=== PATIENT | female | born 1980 | race Caucasian/White ===

== ENCOUNTER 2025-03-19 07:56 | Outpatient (AMB) | payer OTHER, SELFPAY ==
--- NOTE | 2025-03-19 08:01 | A.OFFPC_ITS ---
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 Accompanied by: Self / Same As Patient Allergies No Known Allergies Allergy (Verified 03/19/25 08:13) Medication List - Last Reconciled 03/19/25 by Kimberly Fernandes MD No Known Home Meds Tobacco use date assessed: 03/19/25 Dental Screening Dental Screen Date: 03/19/25 Did you have a dental visit in the last 12 months?: Yes Did you have a dental problem in the last 6 months where you did not have access to dental care?: No Was dental information given to patient?: Patient has dentist HPI HPI Comments History of Present Illness Details The patient is a 44-year-old female presenting for a routine examination and management of chronic conditions, including anemia, and constipation. She has undergone a laparoscopy for endometriosis, which was done to address her reproductive health history. There is a notable family history of pernicious anemia and essential hypertension. The patient has not had recent healthcare engagements, missing healthcare appointments over the past 3-4 years, which includes not having a mammogram. She reports experiencing flu-like symptoms earlier in the year requiring emergency intervention. The patient describes lifelong constipation, having had only one bowel movement per week, attributing a part of it to her anemia as advised by her previous doctor. She mentioned an increase in weight from 145 to 176 pounds recently without any documented cause. Cessation of her smoking habits is a goal, and steps are being taken in this regard. She consumes nutrient supplements like magnesium, Vitamin D, and [place]augh-3. There are no reported allergies to medications or other substances. [facility] Medical History (Updated 03/19/25 @ 08:20 by Kimberly Fernandes MD) No pertinent past medical history Surgical History (Updated 03/19/25 @ 08:16 by Kimberly Fernandes MD) H/O laparoscopy Tubal ligation status Family History Mother Hypertension Father Emphysema lung Anemia Pernicious anemia Social History Housing: House Alcohol intake: never Patient Tobacco Use Status: Current everyday Tobacco user Tobacco use type: Cigarette Cigarette Packs Per Day: 1 e-Cigarette/Vaping Use: Never Used Second Hand Smoke Exposure: No service: No Current occupational status: employed Current occupational exposures/hazards: No Cognitive needs: No Hearing needs: No Vision needs: Yes Questionnaire PHQ-9 Over the last 2 weeks, how often have you been bothered by any of the following problems? 1. Little interest or pleasure in doing things: more than half the days 2. Feeling down, depressed, or hopeless: not at all 3. Trouble falling or staying asleep, or sleeping too much: more than half the days 4. Feeling tired or having little energy: several days 5. Poor appetite or overeating: not at all 6. Feeling bad about yourself - or that you are a failure or have let yourself or your family down: not at all 7. Trouble concentrating on things, such as reading the newspaper or watching television: not at all 8. Moving or speaking so slowly that other people could have noticed. Or the opposite - being so fidgety or restless that you have been moving around a lot more than usual: several days 9. Thoughts that you would be better off or of hurting yourself in some way: not at all Total score: 6 Depression Screening Interpretation: Positive Depression Screening Follow-up: Existing condition and Follow-up Visit Requested Depression Screening Done: Yes 86363 - PHQ-9 Billing: Yes Source: Developed by Drs. Rafy Yee, Anabela Prieto, Franklyn Barrett and colleagues, with an educational jhonny from [employer]. Thrive Questionnaire Date Thrive assessed: 03/12/25 I am a: Patient What is your living situation today?: I have a steady place to live Within the past 12 months, did the food you bought not last and you didn't have the money to get more?: Often true Within the past 12 months, did you worry whether your food would run out before you got money to buy more?: Never true Do you have trouble paying for medicines?: No Do you have trouble getting transportation to medical appointments?: No Do you have trouble paying your heating and electricity bill?: No Do you have trouble taking care of your child, family member or friend?: No Do you have trouble with day-to-day activities such as bathing, preparing meals, shopping, managing finances, etc.?: No Are you currently unemployed and looking for a job?: No Are you interested in more education?: No Please select the resources that you would like help with: None Currently or been in a relationship where the following occur: No concerns reported THRIVE Score: 1 AUDIT C Alcohol Use Questionnaire (AUDIT-C) 1. How often do you have a drink containing alcohol?: Never Total Score: 0 Score Reviewed/Action Taken: No IVY-7 AMB Questionnaire IVY-7 Date IVY - 7 assessed: 03/19/25 Feeling nervous, anxious, or on edge: 0 = Not at all Not being able to stop or control worryin = Not at all Worrying too much about different things: 0 = Not at all Trouble relaxin = Not at all Being so restless that it is hard to sit still: 0 = Not at all Becoming easily annoyed or irritable: 0 = Not at all Feeling afraid as if something awful might happen: 0 = Not at all Total IVY-7 score (0-4 normal; 5-9 mild; 10-14 moderate; 15-21 severe): 0 Source: Developed by Drs. Rafy Yee, Anabela Prieto, Franklyn Barrett and colleagues, with an educational jhnony from [employer]. IVY-7 Assessment Billing IVY-7 Assessment Tool: IVY-7 Assessment 45683 Review of Systems Const All systems reviewed & are unremarkable except as noted in HPI and below Card Denies chest pain at rest, Denies chest pain with activity, Denies edema, Denies irregular heart rhythm, Denies claudication, Denies dyspnea, Denies dyspnea on exertion, Denies orthopnea, Denies paroxysmal nocturnal dyspnea and Denies slow heart rate Resp Denies cough, Denies dyspnea and Denies dyspnea on exertion GI Denies abdominal pain, Denies change in bowel habits, Reports constipation, Denies excessive flatus, Denies nausea and Denies vomiting Denies urinary incontinence, Denies urinary hesitancy and Denies urinary urgency Musc Denies abnormal gait, Denies atrophy, Denies deformity and Denies limited range of motion Skin/Breast Denies bleeding lesions, Denies changing lesions and Denies rash Neuro Denies abnormal gait and Denies lack of coordination Psych Reports anxiety and Reports depression Physical exam (Primary Care) Vital Signs: Last Vital Signs BP 122/80 03/19/25 08:02 BMI result Body Mass Index 28.4 Tobacco/Smoking Status: Tobacco use Status Tobacco use date assessed 03/19/25 03/19/25 08:09 Patient Tobacco Use Status Current everyday Tobacco 03/19/25 08:09 Tobacco use type Cigarette 03/19/25 08:09 e-Cigarette/Vaping Use Never Used 03/19/25 08:09 Are you ready to quit: Yes Tobacco cessation counseling provided: Yes Items discussed: Nicotine replacement and QuitWorks Relapse Prevention: discussed the importance of a supportive environment, discussed extending NRT, discussed negative mood or depression after quitting, weight gain after smoking is common and discussed dietary, exercise and/or lifestyle changes Number of minutes spent counselin CPT code: 59264 - 4-10 Minutes PHQ-9: PHQ-9 Score PHQ-9: Total score 6 03/19/25 08:19 Depression Screening Interpretation: Positive Depression Screening Follow-up: Existing condition and Follow-up Visit Requested Thrive Assessment: Date of Thrive Assessment Date Thrive assessed 03/12/25 03/19/25 08:09 Currently or been in a relationship where the following occur: No concerns reported Resp Effort & Inspection: normal respiratory effort Auscultation: clear to auscultation bilaterally Cardio Jugular venous distension: no JVD Rate: regular rate Rhythm: regular rhythm Heart sounds: S1 normal heart sound present and S2 normal heart sound present Extrem General: Yes full ROM Immunizations Boostrix Tdap 2.5 Lf unit-8 mcg-5 Lf/0.5 mL intramuscular syringe Performing Provider: Kimberly Fernandes MD [facility] Administered by: SHAZIA Gallardo on 03/19/25 08:30 Dose Route Admin Location Dispensed Lot Number Expiration Date [facility] Marine Equipment Test Engineer 0.5 mL IM Left Deltoid 0.5 mL [id number] 07/22/27 [id number] [employer] VIS Given Date VIS Provided VIS Publication Date 03/19/25 Single Vaccine 24 Eligibility Eligibility Date Funding Source Not [facility] Eligible 03/19/25 Private Coding Level of Care Code New Pt Level 4 (72804) Complex EM visit Add On G2211 Diagnoses Mild recurrent major depression F33.0 Anemia D64.9 Chronic idiopathic constipation K59.04 Overweight (BMI 25.0-29.9) E66.3 Additional Codes PHQ-9 - 59520 - PHQ-9 Billing: Yes ([id number]) IVY-7 Assessment Billing - IVY-7 Assessment Tool: IVY-7 Assessment 97414 ([id number]) Vital Signs *Quality* - CPT code: 61214 - 4-10 Minutes ([id number]) Time Spent (min) 25 Assessment & Plan Assessment & Plan (1) Mild recurrent major depression: Code(s): F33.0 - Major depressive disorder, recurrent, mild Category: Medical (2) Anemia: Code(s): D64.9 - Anemia, unspecified Category: Medical (3) Chronic idiopathic constipation: Code(s): K59.04 - Chronic idiopathic constipation Category: Medical (4) Overweight (BMI 25.0-29.9): Code(s): E66.3 - Overweight Category: Medical Plan Management of the patient's multiple chronic conditions includes ongoing monitoring and treatment adjustments. Hemoglobin levels are to be regularly checked for any anemia progression with adjustments in supplementation as appropriate. Constipation will be managed with diet and potential medication interventions. Smoking cessation will be supported with nicotine patches and resources. Additional screening interventions include scheduling for mammography and colorectal cancer screening, acknowledging the lack of prior screenings and addressing age-related risks. Vaccination for tetanus will take place during today's visit. Patient was informed and verbally consented to the use of an ambient scribe for clinic note documentation during this visit. During the visit, we discussed the management plans for the patient's health conditions. We agreed to proceed with blood tests for anemia and based on lab results, make adjustments to her supplementation regimen. For constipation, dietary intervention is suggested before pharmacological interventions, with the potential for requiring laxatives if the problem persists. The patient agreed to participate in smoking cessation therapy with nicotine patches and use recommended online resources. She consented to the tetanus vaccination, understanding its necessity despite work constraints. We emphasized the importance of routine mammograms and cancer screening given her age and family history. She is advised to follow up based on the test results and as her condition evolves. Orders: Orders Comprehensive [place]. Panel Fast Today K59.04 - Chronic idiopathic constipation Thyroid Stimulating Hormone Today K59.04 - Chronic idiopathic constipation MM tomosynthesis screening BI Today Z12.31 - Encounter for screening mammogram for malignant neoplasm of breast Complete Blood Count Auto Diff Today D64.9 - Anemia, unspecified IRON PROFILE Today D64.9 - Anemia, unspecified Vitamin B12 and Folate Today D64.9 - Anemia, unspecified, E53.8 - Deficiency of other specified B group vitamins Lipid Panel Today E66.3 - Overweight Vitamin D 25-OH Total Today E55.9 - Vitamin D deficiency, unspecified Referrals Counseling Referral F33.0 - Major depressive disorder, recurrent, mild INSURANCE CUSTOMER SERVICE SPECIALIST Referral Z12.4 - Encounter for screening for malignant neoplasm of cervix Medications: New sennosides (senna) 8.6 mg PO BEDTIME 30 days 30 tabs 0RF K59.04 - Chronic idiopathic constipation Patient Instructions: - Quit smoking using nicotine patches and recommended resources. - Increase dietary fiber to manage constipation. - Arrange mammography and colorectal cancer screening appointments. - Continue with magnesium and vitamin supplementation as discussed. - Follow-up after completion of laboratory tests for further anemia management. - Ensure tetanus vaccination during today's visit. - Stay hydrated and engage in regular exercise.
[2025-03-19 08:02] VITALS: BP 122/80; BMI 28.4
--- OUTSIDE RECORDS SUMMARY | 2025-03-19 08:02 | XMS_ITS | Clinical Summary ---
Author Organization [employer] Address [address] [place] [address] [address] [place] [address] Care Team Providers Care Manager Trust Name Role Phone Unavailable Primary Care Provider Unavailabl e Allergies No known active allergies Medications No known medications Encounters Date Type Department Care Team Description 02/10/2025 3:00 PM EDT Office Visit [facility] [address] [place] [address] Urbna Jasmine 01/20/2025 3:30 PM EST Office Visit [facility] [address] [place] [address] Urban Jasmine from Last 3 Months Social History Tobacco Use Types Packs/Day Years Used Date Smoking Tobacco: Every Day Cigarettes Passive Smoke Exposure: Never Smokeless Tobacco: Never Tobacco Cessation:Ready to Q uit: Not Asked; Counseling Given: Not Answered Comments Unknown Sex and Gender Information Value Date Recorded Sex Assigned at Female 10/03/2024 3:25 PM EST Legal Sex Female 10:15 AM EDT Gender Identity Female 10/03/2024 3:25 PM EST Sexual Orientation Straight 10/03/2024 3: 25 PM EST Last Filed Vital Signs Vital Sign Reading Time Taken Comments Blood Pressure 124/81 02/10/2025 3:08 PM EDT Pulse 65 10/28/2024 2:14 PM EST Temperature - - Respiratory Rate - - Oxygen Saturation - - Inhaled Oxygen Concentration - - Weight - - Height - - Body Mass Index - - Plan of Treatment Upcoming Encounters Date Type Department Care Team (Late st Contact Info) Description 04/10/2025 3:00 PM EDT Office Visit [facility]ULT [facility] [address] [place] [address] Urban Jasmine [address] [place] [address] Health Maintenance Due Date Last Done Comments Depression Screening 1980 HIV Screening 1980 Lipid Panel 1980 SDOH Screening 1980 Alcohol/Substance Use Screening 1992 Family Planning (PISQ) 1995 Hepatitis C Screening 1998 DTaP/Tdap/Td Vaccines (1 - Tdap) 1999 Hepatitis B Vaccines (1 of 3 - 19+ 3-dose series) 1999 Pneumococcal Vaccine: Pediat rics (0 to 5 Years) and At-Risk Patients (6 to 49) Years) (1 of 2 - PCV) 1999 Pap Smear 2001 Cervical Cancer Screening 2010 HPV/Cotest 2010 Mammogram 2020 COVID-19 Vaccine (1 - 2023-2 5 season) 2024 Influenza Vaccine (#1) 2024 Dental Prophylaxis 04/29/2025 10/28/2024 Dental Oral Exam 07/21/2025 01/20/2025 Dental X-Ray: Bitewings 10/29/2025 10/28/2024 Tobacco Screening 02/10/2026 02/10/2025 Dental X-Ray: Full Mouth 10/29/2027 10/28/2024 Zoster Vaccines (1 of 2) 2030 RSV Patients and Pa tients Aged 60 years or older (1 - 1-dose 75+ series) 2055 HIB Vaccines Aged Out No longer eligi ble based on patient's age to complete this topic HPV Vaccines Aged Out No longer eligi ble based on patient's age to complete this topic Hepatitis A Vaccines Aged Out No long er eligible based on patient's age to complete this topic IPV Vaccines Aged Out No longer eligi ble based on patient's age to complete this topic Meningococcal Vaccine Aged Out No silvestre familia eligible based on patient's age to complete this topic RSV under 20 months Aged Out No longe r eligible based on patient's age to complete this topic Rotavirus Vaccines Aged Out No longer eligible based on patient's age to complete this topic Procedures Procedure Name Priority Date/Time Associated Diagnosis Comments CASE PRESENTATION, DETAILED AND EXTENSIVE TREATMENT PLANNING Routine 02/10/2025 3:00 PM EDT 21 O RESIN-BASED COMPOSITE - 1 SURF, POSTERIOR Routine 02/10/2025 3:00 PM EDT CARIES RISK ASSESSMENT AND DOCUMENTATION, HIGH RISK Routine 01/20/2025 3:30 PM EST TOBACCO COUNSELING FOR THE CONTROL AND PREVENTION OF ORAL DISEASE Routine 01/20/2025 3:30 PM EST ORAL HYGIENE INSTRUCTIONS Routine 2024 3:30 PM EST CASE PRESENTATION, DETAILED AND EXTENSIVE TREATMENT PLANNING Routine 01/20/2025 3:30 PM EST COMPREHENSIVE ORAL EVALUATION - NEW OR ESTABLISHED PATIENT Routine 01/20/2025 3:30 PM EST PROPHYLAXIS - ADULT Routine 10/28/2024 2 :00 PM EST INTRAORAL - COMPLETE SERIES OF RADIOGRAPHIC IMAGES Routine 10/28/2024 2:00 PM EST from Last 3 Months or Most Recently Relevant to Health Maintenance Insurance [facility] MEDICAID STAND ADULT
== END 2025-03-19 08:31 | disposition home or self-care (01) ==
LOC: HO.HMCH 07:57
PROVIDERS: PCP Internal Medicine; Visit Provider Internal Medicine
DX: F33.0 Major depressive disorder, recurrent, mild (principal); D64.9 Anemia, unspecified; K59.04 Chronic idiopathic constipation; E66.3 Overweight; Z23 Encounter for immunization

== ENCOUNTER → 2025-03-19 07:56 | Outpatient (BNVA) | payer OTHER, SELFPAY | PROVIDERS: PCP Internal Medicine; Visit Provider Internal Medicine | DX: F33.0 Major depressive disorder, recurrent, mild (principal); Z23 Encounter for immunization; D64.9 Anemia, unspecified; K59.04 Chronic idiopathic constipation; E66.3 Overweight; Z68.28 Body mass index [BMI] 28.0-28.9, adult | CPT/HCPCS: 90471; 90715; 96127; 99202 ==

== ENCOUNTER 2025-05-13 11:40 | Outpatient (REF) | payer OTHER, SELFPAY ==
--- NOTE | ~2025-05-13 | MM_ITS ---
EXAMINATION: MM SCREENING DIGITAL BREAST TOMOSYNTHESIS, BILATERAL CLINICAL INFORMATION: Screening. Asymptomatic. COMPARISON: Mammography: Baseline. TECHNIQUE: Digital breast mammography with tomosynthesis is performed in both the craniocaudal and mediolateral oblique views along with computer-aided detection (CAD). FINDINGS: There are scattered areas of fibroglandular density (ACR BI-RADS breast composition Category b). There are no significant masses, abnormal calcifications, or other abnormalities. MM/MM tomosynthesis screening BI IMPRESSION: No mammographic evidence of malignancy. ASSESSMENT: BI-RADS BI-RADS 1 - Negative RECOMMENDATION: Routine annual mammography screening. 1 year F/U This examination should not preclude the clinical evaluation of a suspicious palpable abnormality. This patient's information was entered into a reminder system with a target due date for their next mammogram. Electronically signed by: Camille Chaney DO 05/18/2025 06:13 PM EDT
--- OUTSIDE RECORDS SUMMARY | 2025-05-13 13:40 | XMS_ITS | Clinical Summary ---
Author Organization [employer] Address [address] [facility] [address] [place] [address] Care Team Providers Care Aluminum Hydroxide Process Operator Name Role Phone Unavailable Primary Care Provider Unavailabl e Allergies No known active allergies Medications nicotine (Nicoderm, Step 1) 21 MG/24HR patch 03/19/2025 Ac tive Senna-Time 8.6 MG tablet 03/19/2025 Active Encounters Date Type Department Care Team Description 04/17/2025 1:00 PM EDT Office Visit [facility]ULT [facility] [address] [place] [address] Macy Obregon DDS 04/10/2025 3:00 PM EDT Office Visit [facility] [address] [place] [address] Elsa Jasminericio 02/10/2025 3:00 PM EDT Office Visit [facility] [address] [place] [address] Urban Jasmine from Last 3 Months Social [...] Sign Reading Time Taken Comments Blood Pressure 108/60 04/17/2025 1:10 PM EDT Pulse 65 10/28/2024 2:14 PM EST Temperature - - Respiratory Rate - - Oxygen Saturation - - Inhaled Oxygen Concentration - - Weight - - Height - - Body Mass Index - - Plan of Treatment Health Maintenance Due Date Last Done Comments Depression Screening 1980 HIV Screening 1980 Lipid Panel 1980 SDOH Screening 1980 Disability Screening 1980 Alcohol/Substance Use Screening 1992 Family Planning (PISQ) 1995 Hepatitis C Screening 1998 DTaP/Tdap/Td Vaccines (1 - Tdap) 1999 Hepatitis B Vaccines (1 of 3 - 19+ 3-dose series) 1999 Pneumococcal Vaccine: Pediatrics (0 to 5 Years) and At-Risk Patients (6 to 49) Years (1 of 2 - PCV) 1999 Pap Smear 2001 Cervical Cancer Screening 2010 HPV/Cotest 2010 Mammogram 2020 COVID-19 Vaccine (1 - 2023-2 5 season) 2024 Dental Prophylaxis 04/29/2025 10/28/2024 Dental Oral Exam 07/21/2025 01/20/2025 Influenza Vaccine (Season Ended) 2025 Tobacco Screening 04/17/2026 04/17/2025 Dental X-Ray: Bitewings 04/18/2026 04/17/20, 10/28/2024 Dental X-Ray: Full Mouth 10/29/2027 10/28/2024 Zoster Vaccines (1 of 2) 2030 RSV Patients and Patients Aged 60 years or older (1 - [...] patient's age to complete this topic Meningococcal B Vaccine Aged Out No l onger eligible based on patient's age to complete [...] PRESENTATION, DETAILED AND EXTENSIVE TREATMENT PLANNING Routine 04/17/2025 1:00 PM EDT INTRAORAL - PERIAPICAL FIRST RADIOGRAPHIC IMAGE Routine 04/17/2025 1:00 PM EDT LIMITED ORAL EVALUATION - PROBLEM FOCUSED Routine 04/17/2025 1:00 PM EDT BITEWING - SINGLE RADIOGRAPHIC IMAGE Routine 04/17/2025 1:00 PM EDT CASE PRESENTATION, DETAILED AND EXTENSIVE TREATMENT PLANNING Routine 04/10/2025 3:00 PM EDT 20 O RESIN-BASED COMPOSITE - 1 SURF, POSTERIOR Routine 04/10/2025 3:00 PM EDT 29 O RESIN-BASED COMPOSITE - 1 SURF, POSTERIOR Routine 04/10/2025 3:00 PM EDT 28 O RESIN-BASED COMPOSITE - 1 SURF, POSTERIOR Routine 04/10/2025 3:00 PM EDT CASE PRESENTATION, DETAILED AND EXTENSIVE TREATMENT PLANNING Routine 02/10/2025 3:00 PM EDT 21 O RESIN-BASED COMPOSITE - 1 SURF, POSTERIOR Routine 02/10/2025 3:00 PM EDT COMPREHENSIVE ORAL EVALUATION - NEW OR ESTABLISHED PATIENT Routine 01/20/2025 3:30 PM EST PROPHYLAXIS - ADULT Routine 10/28/2024 2 :00 PM EST INTRAORAL - COMPLETE SERIES OF RADIOGRAPHIC IMAGES Routine 10/28/2024 2:00 PM EST from Last 3 Months or Most Recently Relevant to Health Maintenance Insurance [facility] MEDICAID STAND ADULT
== END 2025-05-13 11:41 | disposition home or self-care (01) ==
LOC: HO.MAMMO 11:40
PROVIDERS: PCP Internal Medicine; Visit Provider Internal Medicine
DX: Z12.31 Encounter for screening mammogram for malignant neoplasm of breast (principal)
CPT/HCPCS: 77063; 77067

== ENCOUNTER → 2025-05-13 11:45 | Outpatient (BNV) | payer OTHER, SELFPAY | PROVIDERS: PCP Internal Medicine; Visit Provider Internal Medicine | DX: Z12.31 Encounter for screening mammogram for malignant neoplasm of breast (principal) | CPT/HCPCS: 77063; 77067 ==

== ENCOUNTER 2025-05-20 10:19 | Outpatient (REF) | payer OTHER, SELFPAY ==
[2025-05-20 10:29] LABS: MANUAL DIFF FLAG NO
[2025-05-20 10:41] LABS: Basophils Percent Auto 0.4 % (0-2); Eosinophils Absolute Auto 0.1 X10*3/uL (0.0-0.4); Eosinophils Percent Auto 1.1 % (0-4); Hematocrit 33.7 % (37.0-47.0); Hemoglobin 11.3 g/dl (12.0-16.0); Imm Gran Abs Auto 0.03 X10*3/uL (0.00-0.03); Imm Gran Pct Auto 0.4 % (0.0-0.4); Lymphocytes Absolute Auto 2.3 X10*3/uL (1.2-4.9); Lymphocytes Percent Auto 31.5 % (20-40); Mean Corpuscular HGB Conc 33.5 g/dl (31.0-35.0); Mean Corpuscular Hemoglobin 29.4 pg (27.0-33.0); Mean Corpuscular Volume 87.5 fL (80.0-98.0); Monocytes Absolute Auto 0.5 X10*3/uL (0.1-1.2); Monocytes Percent Auto 6.9 % (2-11); Neutrophils Absolute Auto 4.4 x10*3/uL (2.0-8.3); Neutrophils Percent Auto 59.7 % (45-73); Platelet Count 248 X10*3/uL (160-400); Red Blood Count 3.85 X10*6/uL (4.20-5.50); Red Cell Distribution Width 12.9 % (11.0-16.0); White Blood Count 7.4 X10*3/uL (4.8-10.8)
[2025-05-20 11:19] LABS: Alanine Aminotransferase 19 U/L (0-31); Albumin Level 4.1 g/dL (3.5-5.0); Alkaline Phosphatase 87 U/L (39-117); Anion Gap 11 (12-20); Aspartate Amino Transferase 21 U/L (5-31); Bilirubin Total 0.5 mg/dL (0.0-1.0); Blood Urea Nitrogen 13 mg/dL (9-16); Carbon Dioxide 24 mmol/L (22-29); Chloride 109 mmol/L (96-108); Cholesterol 172 mg/dL (<200); Estimated Glomerular Filt Rate > 60; Glucose Fasting 98 mg/dL (60-99); HDL Cholesterol 49 mg/dL (>40); Iron 89 mcg/dL (30-160); LDL Cholesterol Calculated 106 mg/dL (<100); Percent Iron Saturation 35 % (15-50); Potassium 3.8 mmol/L (3.3-5.1); Sodium 140 mmol/L (135-145); Total Iron Binding Capacity 253 mcg/dL (228-428); Total Protein 6.9 g/dL (6.5-8.0); Triglycerides 89 mg/dL (<150); Unsaturated Iron Binding 164 ug/dL
[2025-05-20 11:47] LABS: Folate 11.2 ng/mL (> or = 4.0); Vitamin B12 318 pg/mL (200-900)
[2025-05-20 11:48] LABS: Thyroid Stimulating Hormone 0.92 uIU/mL (0.32-4.0); Vitamin D 25-OH Total 20.4 ng/mL (>30)
--- OUTSIDE RECORDS SUMMARY | 2025-05-20 12:02 | XMS_ITS | Clinical Summary ---
Author Organization [employer] Address [address] [facility] [address] [place] [address] Care Team Providers Care Electrical Construction Project Manager Name Role Phone Unavailable Primary Care Provider Unavailabl e Allergies No known active allergies Medications nicotine (Nicoderm, Step 1) 21 MG/24HR patch 03/19/2025 Ac tive Senna-Time 8.6 MG tablet 03/19/2025 Active Encounters Date Type Department Care Team Description 04/17/2025 1:00 PM EDT Office Visit [facility] ADULT [facility] [address] [place] [address] Macy Obregon DDS 04/10/2025 3:00 PM EDT Office Visit [facility]ULT [facility] [address] [place] [address] Urban Jasmine from Last 3 Months Social [...] Care Team (Late st Contact Info) Description 05/21/2025 2:00 PM EDT Office Visit [facility] [address] [place] [address] Walt Hercules Health Maintenance Due Date Last Done Comments [...] SURF, POSTERIOR Routine 04/10/2025 3:00 PM EDT COMPREHENSIVE ORAL EVALUATION - NEW OR ESTABLISHED PATIENT Routine 01/20/2025 3:30 PM EST PROPHYLAXIS - ADULT Routine 10/28/2024 2 :00 PM EST INTRAORAL - COMPLETE SERIES OF RADIOGRAPHIC IMAGES Routine 10/28/2024 2:00 PM EST from Last 3 Months or Most Recently Relevant to Health Maintenance Insurance DENTAL-[facility] MEDICAID STAND ADULT
== END 2025-05-20 10:20 | disposition home or self-care (01) ==
LOC: HO.LAB 10:19
PROVIDERS: PCP Internal Medicine; Visit Provider Internal Medicine
DX: K59.04 Chronic idiopathic constipation (principal); D64.9 Anemia, unspecified; E66.3 Overweight; E53.8 Deficiency of other specified B group vitamins; E55.9 Vitamin D deficiency, unspecified
CPT/HCPCS: 36415; 80053; 80061; 82306; 82607; 82746; 83540; 84443; 85025

== ENCOUNTER 2025-08-06 07:30 | Outpatient (AMB) | payer OTHER, SELFPAY ==
--- OUTSIDE RECORDS SUMMARY | 2025-08-03 15:30 | XMS_ITS | Encounter Summary ---
Author Organization [employer] Address [address] [place] [address] 7 [place] [address] Care Team Providers Care Interior Block Wirer Name Role Phone Unavailable Primary Care Provider Unavailabl e Reason for Visit * Reason Comments Consult Encounter Details Date Type Department Care Team ([facility] st Contact Info) Description 08/03/2025 3:30 PM EDT Office Visit [facility] ADULT DENTAL [address] [place] [address] MitaliUrban grady [address] [place] [address] Social History Tobacco Use Types Packs/Day Years Used Date Smoking Tobacco: Every Day Cigarettes Passive Smoke Exposure: Never Smokeless Tobacco: Never Comments Unknown Sex and Gender Information Value Date Recorded Sex Assigned at Female 10/03/2024 3:25 PM EST Legal Sex Female 10:15 AM EDT Gender Identity Female 10/03/2024 3:25 PM EST Sexual Orientation Straight 10/03/2024 3: 25 PM EST documented as of this encounter Progress Notes * Urban Jasmine - 08/03/2025 3:30 PM EDT Dental procedures in this visit [id number] - CONSULTATION - DIAGNOSTIC SERVICE PROVIDED BY DENTIST OR PHYSICIAN OTHER THAN REQUESTING DENTIST OR PHYSICIAN (Completed) Service provider: Urban Jasmine Billing provider: Andreas Garrido DDS D9450 - CASE PRESENTATION, DETAILED AND EXTENSIVE TREATMENT PLANNING (Completed) Service provider: Urban Jasmine Billty provider: Andreas Garrido DDS Patient ID: Nicole Blackman is a 45 y.o. female. Time Out: Date: 08/03/2025 Location: [facility] Tooth: #3 Procedure: Exam Verified the above with patient, assistant professor of education, and provider. Confirmed via patient's chart, intraorally and by radiographs. Jinrikisha Driver: not applicable 45 y.o. y/o female presents for limited exam with Dr. Urban Jasmine Medical history: Reviewed in EHR Vitals: There were no vitals taken for this visit. Allergies: Reviewed in EHR Medications: Reviewed in EHR Radiographs taken: ARMIN CHIEF COMPLAINT: I'm here for my evaluation Discussion: Patient presented to the dental office for evaluation of a lesion on the upper right gingiva. 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 Pt reportedhaving fistula for more than 2 years. Findings: Tooth #2: Positive response to Endo Ice, no pain on percussion, no pain on palpation. Tooth #3: Negative response to Endo Ice, no pain on percussion, no pain on palpation. Patient was informed that root canal re-treatment of tooth #3 is indicated. Patient agreed and understood the treatment plan. Diagnosis: Pulp necrosis / Asymptomatic apical periodontitis. NV: RCT #3 Provider: Dr. Urban Jasmine Dental Pottery Decoration Designer: Suni Fermin Attending: Dr. Garrido Note: No antibiotic prescribed due to chronic condition of infection. * Andreas Garrido DDS - 08/03/2025 3:30 PM EDT Reviewed. Andreas Garrido DDS documented in this encounter Plan of Treatment Upcoming Encounters Date Type Department Care Team (Late st Contact Info) Description 08/10/2025 11:00 AM EDT Office Visit [facility] ADULT DENTAL [address] [place] [address] Andreas Garrido DDS [address] [place] [address] 12/04/2025 3:00 PM EST Office Visit [facility] ADULT DENTAL [address] [place] [address] Beauzile, Walt Scheduled Orders Name Type Priority Associated Diagnoses Orde r Schedule 3 3 RETREATMENT OF PREVIOUS ROOT CANAL THERAPY - MOLAR Dental Routine [address] arting 08/03/2025 documented as of this encounter Procedures Procedure Name Priority Date/Time Associated Diagnosis Comments CONSULTATION - DIAGNOSTIC SERVICE PROVIDED BY DENTIST OR PHYSICIAN OTHER THAN REQUESTING DENTIST OR PHYSICIAN Routine 08/03/2025 3:30 PM EDT CASE PRESENTATION, DETAILED AND EXTENSIVE TREATMENT PLANNING Routine 08/03/2025 3:30 PM EDT documented in this encounter Visit Diagnoses Not on filedocumented in this encounter
[2025-08-06 07:33] VITALS: BP 114/68; PULSE 66; O2SAT 98; BMI 27.6
--- NOTE | 2025-08-06 07:33 | MHC.PC.OV ---
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 She reports blurry vision and expresses a desire to see an [facility] for further evaluation. She has been informed of mild anemia based on recent lab results, although specific details regarding the onset or cause were not discussed. The patient takes Senna for constipation management. She is a smoker and has been advised to quit smoking. She is aware of potential weight gain and mood changes associated with smoking cessation and acknowledges the need for family support. - Tdap vaccination completed this year - Mammogram completed this year - Colon cancer screening planned with Cologuard - Pap smear scheduled for October [facility] Medical History (Updated 08/06/25 @ 07:56 by Kimberly Fernandes MD) No pertinent past medical history Surgical History H/O laparoscopy Tubal ligation status Family History Mother Hypertension Father Emphysema lung Anemia Pernicious anemia Social History (Updated 08/06/25 @ 07:47 by Kimberly Fernandes MD) Housing: House Alcohol intake: current Alcohol intake frequency: a few times a month Alcohol type: wine Patient Tobacco Use Status: Current everyday Tobacco user Tobacco use type: Cigarette Cigarettes Per Day: 5 e-Cigarette/Vaping Use: Never Used Second Hand Smoke Exposure: No service: No Current occupational status: employed Current occupational exposures/hazards: No Cognitive needs: No Hearing needs: No Vision needs: Yes Questionnaire PHQ-9 Over the last 2 weeks, how often have you been bothered by any of the following problems? 1. Little interest or pleasure in doing things: not at all 2. Feeling down, depressed, or hopeless: not at all 3. Trouble falling or staying asleep, or sleeping too much: not at all 4. Feeling tired or having little energy: nearly every day 5. Poor appetite or overeating: not at all 6. Feeling bad about yourself - or that you are a failure or have let yourself or your family down: not at all 7. Trouble concentrating on things, such as reading the newspaper or watching television: not at all 8. Moving or speaking so slowly that other people could have noticed. Or the opposite - being so fidgety or restless that you have been moving around a lot more than usual: not at all 9. Thoughts that you would be better off or of hurting yourself in some way: not at all Total score: 3 Depression Screening Interpretation: Positive Depression Screening Follow-up: Existing condition and Follow-up Visit Requested Depression Screening Done: Yes 28120 - PHQ-9 Billing: Yes Source: Developed by Drs. Rafy Yee, Anabela Prieto, Franklyn Barrett and colleagues, with an educational jhonny from [employer]. Thrive Questionnaire Date Thrive assessed: 08/02/25 I am a: Patient What is your living situation today?: I have a steady place to live Within the past 12 months, did the food you bought not last and you didn't have the money to get more?: Never true Within the past 12 months, did you worry whether your food would run out before you got money to buy more?: Never true Do you have trouble paying for medicines?: Yes Do you have trouble getting transportation to medical appointments?: No Do you have trouble paying your heating and electricity bill?: No Do you have trouble taking care of your child, family member or friend?: No Do you have trouble with day-to-day activities such as bathing, preparing meals, shopping, managing finances, etc.?: No Are you currently unemployed and looking for a job?: No Are you interested in more education?: Yes Please select the resources that you would like help with: None Currently or been in a relationship where the following occur: No concerns reported THRIVE Score: 0 AUDIT C Alcohol Use Questionnaire (AUDIT-C) 1. How often do you have a drink containing alcohol?: 2-4 times a month 2. How many drinks containing alcohol do you have on a typical day when you are drinking?: 1 or 2 3. How often do you have six or more drinks on one occasion?: Never Total Score: 2 Score Reviewed/Action Taken: No IVY-7 AMB Questionnaire IVY-7 Date IVY - 7 assessed: 03/19/25 Feeling nervous, anxious, or on edge: 0 = Not at all Not being able to stop or control worryin = Not at all Worrying too much about different things: 0 = Not at all Trouble relaxin = Not at all Being so restless that it is hard to sit still: 0 = Not at all Becoming easily annoyed or irritable: 0 = Not at all Feeling afraid as if something awful might happen: 0 = Not at all Total IVY-7 score (0-4 normal; 5-9 mild; 10-14 moderate; 15-21 severe): 0 Source: Developed by Drs. Rafy Yee, Anabela Priteo, Franklyn Barrett and colleagues, with an educational jhonny from [employer]. IVY-7 Assessment Billing IVY-7 Assessment Tool: IVY-7 Assessment 54291 Review of Systems Const All systems reviewed & are unremarkable except as noted in HPI and below Card Denies chest pain at rest, Denies chest pain with activity, Denies edema, Denies irregular heart rhythm, Denies claudication, Denies dyspnea, Denies dyspnea on exertion, Denies orthopnea, Denies paroxysmal nocturnal dyspnea and Denies slow heart rate Resp Denies cough, Denies dyspnea and Denies dyspnea on exertion Denies urinary incontinence, Denies urinary hesitancy and Denies urinary urgency Musc Denies atrophy, Denies deformity and Denies limited range of motion Physical exam (Primary Care) Vital Signs: Last Vital Signs Pulse 66 08/06/25 07:33 BP 114/68 08/06/25 07:33 Pulse Ox 98 08/06/25 07:33 Oxygen Delivery Method Room Air 08/06/25 07:33 BMI result Body Mass Index 27.6 Tobacco/Smoking Status: Tobacco use Status Tobacco use date assessed 03/19/25 08/06/25 07:37 Patient Tobacco Use Status Current everyday Tobacco 08/06/25 07:37 Tobacco use type Cigarette 08/06/25 07:37 e-Cigarette/Vaping Use Never Used 08/06/25 07:37 PHQ-9: PHQ-9 Score PHQ-9: Total score 3 08/06/25 07:37 Depression Screening Interpretation: Positive Depression Screening Follow-up: Existing condition and Follow-up Visit Requested Thrive Assessment: Date of Thrive Assessment Date Thrive assessed 08/02/25 08/06/25 07:37 Currently or been in a relationship where the following occur: No concerns reported HENMT Head: Yes normal to inspection, Yes normocephalic and Yes atraumatic Ears: external ears normal Eyes General: appearance normal, both eyes and all related structures Eyelids: Yes eyelids normal Conjunctivae: conjunctivae normal Neck Neck: Yes normal visual inspection and Yes supple Resp Effort & Inspection: normal respiratory effort Auscultation: clear to auscultation bilaterally Cardio Jugular venous distension: no JVD Rate: regular rate Rhythm: regular rhythm Heart sounds: S1 normal heart sound present and S2 normal heart sound present GI Inspection: Yes normal to inspection Palpation (GI): Soft to palpation and nontender Auscultation: normal bowel sounds Skin General skin exam: no rashes or lesions noted Neuro General: no focal motor deficits Extrem General: Yes full ROM Psych Appearance: grossly normal Coding Level of Care Code Est Pt Level 3 (00552) Est Pt Prev Care 40-64y(78200) Diagnoses Physical exam Z00.00 Mild recurrent major depression F33.0 Blurry vision H53.8 Additional Codes PHQ-9 - 63746 - PHQ-9 Billing: Yes ([id number]) IVY-7 Assessment Billing - IVY-7 Assessment Tool: VIY-7 Assessment 10218 ([id number]) Time Spent (min) 33 Assessment & Plan Assessment & Plan (1) Physical exam: Code(s): Z00.00 - Encounter for general adult medical examination without abnormal findings Category: Medical (2) Mild recurrent major depression: Code(s): F33.0 - Major depressive disorder, recurrent, mild Category: Medical (3) Blurry vision: Code(s): H53.8 - Other visual disturbances Category: Medical Plan Plan Patient was informed and verbally consented to the use of an ambient scribe for clinic note documentation during this visit. 1. Encounter for general adult medical examination without abnormal findings Z00.00 The patient prefers Cologuard for colon cancer screening due to no family history of colon cancer. 2. Other visual disturbances H53.8 The patient reports blurry vision and plans to see an [facility] for further evaluation. Orders: Referrals Ophthalmology Referral H53.8 - Other visual disturbances Cologuard Test Z12.11 - Encounter for screening for malignant neoplasm of colon, Z12.12 - Encounter for screening for malignant neoplasm of rectum
--- OUTSIDE RECORDS SUMMARY | 2025-08-06 07:34 | XMS_ITS | Clinical Summary ---
Author Organization [employer] [facility] Address [address] [place] [address] [address] [place] [address] Care Team Providers Care Records Associate Name Role Phone Unavailable Primary Care Provider Unavailabl e Allergies No known active allergies Medications nicotine (Nicoderm, Step 1) 21 MG/24HR patch 5 Active Senna-Time 8.6 MG tablet 5 Active amoxicillin (Amoxil) 500 MG capsule Take 1 capsule (500 mg) by mouth every 8 (eight) hours for 7 days. 21 capsule 5 07/24/20 25 Discontinu ed(Entered in error) Encounters Date Type Department Care Team Description 08/03/2025 3:30 PM EDT Office Visit [facility] ADULT DENTAL [address] [place] [address] Mitali, Urban 07/24/2025 3:00 PM EDT Office Visit [facility] ADULT DENTAL [address] [place] [address] Mitali, Urban 06/19/2025 3:00 PM EDT Office Visit [facility] ADULT DENTAL [address] [place] [address] Mitali, Urban 05/21/2025 2:00 PM EDT Office Visit [facility] ADULT DENTAL [address] [place] [address] Walt Hercules Dental calculus (Primary Dx) from Last 3 Months Social History Tobacco [...] Sign Reading Time Taken Comments Blood Pressure 110/72 07/24/2025 2:31 PM EDT Pulse 65 05/21/2025 1:50 PM EDT Temperature - - Respiratory Rate - - Oxygen Saturation - - Inhaled Oxygen Concentration - - Weight - - Height - - Body Mass Index - - Plan of Treatment Upcoming Encounters Date Type Department Care Team (Late st Contact Info) Description 08/10/2025 11:00 AM EDT Office Visit [facility] ADULT DENTAL [address] [place] [address] Andreas Garrido DDS [address] [place] [address] 12/04/2025 3:00 PM EST Office Visit [facility] ADULT DENTAL [address] [place] [address] Walt Hercules Health Maintenance Due Date Last Done Comments CT Colonography 1980 Colonoscopy 1980 Colorectal Cancer Screening 1980 Depression Screening 1980 FIT DNA/Cologuard 1980 FIT 1980 FOBT 1980 HIV Screening 1980 Lipid Panel 1980 SDOH Screening 1980 Sigmoidoscopy 1980 Disability Screening 1980 Alcohol/Substance Use Screening 1992 Family Planning (PISQ) 1995 HPV Vaccines (1 - 3-dose series) 1995 Hepatitis C Screening 1998 DTaP/Tdap/Td Vaccines (1 - Tdap) 1999 Hepatitis B Vaccines (1 of 3 - 19+ 3-dose series) 1999 Pneumococcal Vaccine: Pediatrics (0 to 5 Years) and At-Risk Patients (6 to 49) Years (1 of 2 - PCV) 1999 Pap Smear 2001 Cervical Cancer Screening 2010 HPV/Cotest 2010 Mammogram 2020 COVID-19 Vaccine ( - 2024-2 5 season) 2025 Influenza Vaccine (#1) 2025 Dental Oral Exam 11/21/2025 05/21/2025, 01/20/2025 Dental Prophylaxis 11/21/2025 05/21/2025, 10/28/2024 Dental X-Ray: Bitewings 04/18/2026 04/17/20, 10/28/2024 Tobacco Screening 08/03/2026 08/03/2025 Dental X-Ray: Full Mouth 10/29/2027 10/28/2024 Zoster [...] TREATMENT PLANNING Routine 08/03/2025 3:30 PM EDT CONSULTATION - DIAGNOSTIC SERVICE PROVIDED BY DENTIST OR PHYSICIAN OTHER THAN REQUESTING DENTIST OR PHYSICIAN Routine 08/03/2025 3:30 PM EDT CASE PRESENTATION, DETAILED AND EXTENSIVE TREATMENT PLANNING Routine 07/24/2025 3:00 PM EDT 31 O RESIN-BASED COMPOSITE - 1 SURF, POSTERIOR Routine 07/24/2025 3:00 PM EDT CASE PRESENTATION, DETAILED AND EXTENSIVE TREATMENT PLANNING Routine 06/19/2025 3:00 PM EDT 12 DO RESIN-BASED COMPOSITE - 2 SURF, POSTERIOR Routine 06/19/2025 3:00 PM EDT COMPREHENSIVE PERIODONTAL EVALUATION - NEW OR ESTABLISHED PATIENT Routine 05/21/2025 2:00 PM EDT PERIODIC ORAL EVALUATION - ESTABLISHED PATIENT Routine 05/21/2025 2:00 PM EDT CASE PRESENTATION, DETAILED AND EXTENSIVE TREATMENT PLANNING Routine 05/21/2025 2:00 PM EDT ORAL HYGIENE INSTRUCTIONS Routine 2024 2:00 PM EDT PROPHYLAXIS - ADULT Routine 05/21/2025 2 :00 PM EDT BITEWING - SINGLE RADIOGRAPHIC IMAGE Routine 04/17/2025 1:00 PM EDT INTRAORAL - COMPLETE SERIES OF RADIOGRAPHIC IMAGES Routine 10/28/2024 2:00 PM EST from Last 3 Months or Most Recently Relevant to Health Maintenance Insurance [facility] MEDICAID STAND ADULT
== END 2025-08-06 07:52 | disposition home or self-care (01) ==
LOC: HO.HMCH 07:31
PROVIDERS: PCP Internal Medicine; Visit Provider Internal Medicine
DX: Z00.00 Encounter for general adult medical examination without abnormal findings (principal); F33.0 Major depressive disorder, recurrent, mild; H53.8 Other visual disturbances

== ENCOUNTER → 2025-08-06 07:30 | Outpatient (BNVA) | payer OTHER, SELFPAY | PROVIDERS: PCP Internal Medicine; Visit Provider Internal Medicine | DX: Z00.00 Encounter for general adult medical examination without abnormal findings (principal); F33.0 Major depressive disorder, recurrent, mild; H53.8 Other visual disturbances; Z13.31 Encounter for screening for depression | CPT/HCPCS: 96127; 99396 ==